=== PATIENT | female | born 1970 | race Caucasian/White ===

== ENCOUNTER 2017-02-09 12:53 | Emergency (ER) | payer SELFPAY ==
[~2017-02-09] VITALS: Ht 162.6 cm; Wt 68.4 kg
[2017-02-09 12:56] VITALS: BP 132/61; PULSE 99; RESP 16; TEMP 100.3; O2SAT 92
[2017-02-09 13:03] VITALS: BP 113/67; PULSE 90; RESP 24; O2SAT 95
[2017-02-09] MEDS ORDERED: predniSONE 20 MG TAB PO ONE (13:30)
[2017-02-09] MEDS: RESP: ALBUTEROL 2.5 MG/IPRATROPIUM 0.5 MG NEB (SCH) INH ×2 (13:36→13:37)
--- NOTE | 2017-02-09 13:37 | PD ---
HPI Chief Complaint: Respiratory Symptoms Time Seen by Provider: 13:12 Travel History International Travel<30 days: No Contact w/Intl Traveler<30days: No Traveled to known affect area: No History of Present Illness HPI The patient is a 46-year-old female who presents emergency department for 3-4 days of cough, shortness of breath, and body aches. The patient's symptoms started several days ago, she notes a dry and nonproductive cough. She also complains of chest tightness which shortness of breath and audible wheezing. The patient does state she has a history of tobacco use, one half a pack of cigarettes per day, with previous diagnosis of COPD. The patient also complains of body aches with subjective fevers and chills at home. She does complain of mild nausea but denies any vomiting, diarrhea, or abdominal pain. She denies any rash with her myalgias and arthralgias. 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 Symptoms are moderate without any alleviating or exacerbating factors. The patient states she has not smoked a cigarette last 4 days secondary to her current symptoms. PFSH Past Medical History COPD: Yes Diminished Hearing: No Respiratory: Yes (COPD) Tetanus Vaccination: Unknown Influenza Vaccination: No ?: Not LMP: 3 weeks Past Surgical History Surgical History: No Previous Surgery Social History Alcohol Use: No Tobacco Use: Yes (1/2 ppd) Substance Use: No Allergies-Medications (Allergen,Severity, Reaction): Coded Allergies: No Known Allergies (Verified Allergy, Unknown, 02/09/17) Reported Meds & Prescriptions Reported Meds & Active Scripts Active No Active Prescriptions or Reported Medications Review of Systems Except as stated in HPI: all other systems reviewed are Neg General / Constitutional: Positive: Fever, Chills HENT: Positive: Congestion Cardiovascular: Positive: Chest Pain or Discomfort (tightness) Respiratory: Positive: Cough, Shortness of Breath, Wheezing Gastrointestinal: Positive: Nausea, No: Vomiting, Abdominal Pain Musculoskeletal: Positive: Myalgias, Arthralgias Skin: No Rash Physical Exam Narrative GENERAL: Awake, alert, very pleasant 46-year-old female who appears her stated age and is in no acute respiratory distress. SKIN: Focused skin assessment warm/dry. HEAD: Atraumatic. Normocephalic. EYES: Pupils equal and round. No scleral icterus. No injection or drainage. ENT: No nasal bleeding or discharge. Oropharynx reveals cobblestoning but no erythema or exudate. NECK: Trachea midline. No JVD. CARDIOVASCULAR: Regular rate and rhythm. No murmur appreciated. RESPIRATORY: No accessory muscle use. Slightly diminished breath sounds in the bases bilateral with prolonged expiratory phase, type breath sounds, and wheezing. GASTROINTESTINAL: Abdomen soft, non-tender, nondistended. No rebound tenderness. MUSCULOSKELETAL: No obvious deformities. No clubbing. No cyanosis. No edema. NEUROLOGICAL: Awake and alert. No obvious cranial nerve deficits. Motor grossly within normal limits. Normal speech. PSYCHIATRIC: Appropriate mood and affect; insight and judgment normal. Data Data Last Documented VS Vital Signs Date Time Temp Pulse Resp B/P (MAP) Pulse Ox O2 Delivery O2 Flow Rate FiO2 02/09/17 14:31 99 20 131/57 (81) Room Air 95 02/09/17 13:30 95 02/09/17 12:56 100.3 Orders Orders Ecg Monitoring (02/09/17 13:29) Oximetry (02/09/17 13:29) Oxygen Administration (02/09/17 13:29) Chest, Single Ap (02/09/17 13:29) Albuterol-Ipratropium Neb (Duoneb Neb) (02/09/17 13:30) Influenzae A/B Antigen (02/09/17 13:29) Prednisone (Deltasone) (02/09/17 13:30) MDM Medical Decision Making Medical Screen Exam Complete: Yes Emergency Medical Condition: Yes Medical Record Reviewed: Yes Interpretation(s) Last Impressions Chest X-Ray 02/09/17 1329 Signed Impressions: Service Date/Time: Thursday, February 09, 2017 13:38 - CONCLUSION: No acute disease. Jerry Wise MD Date/Time Source Procedure Growth Status 02/09/17 13:44 Nasal Aspirate Influenza Types A,B Antigen (ADIN) - Final NEGATIVE FOR FLU A AND B ANTIGEN.... Complete Differential Diagnosis Differential diagnosis includes bronchitis, COPD exacerbation, pneumonia, pulmonary embolism, ACS, influenza, viral syndrome. Narrative Course The patient states she is a "hard stick "secondary to history of IVDA drug abuse. After discussion with the patient was agreed that we would try oral steroids, duo nebs, with chest x-ray and influenza screen. Chest x-rays unremarkable. Influenza screen was negative. The patient was reevaluated several times, last reevaluation was at 2:30 PM. The patient's symptoms have improved. I did have discussion with the patient regarding the possibility of admission if her symptoms do not improve. She does agree to return if symptoms do not improve or progress. Patient will be placed on steroids, antibiotics, nebulizers, inhaler, and provided a cough medication. She will be provided a copy of her x-ray results and flu results at discharge. Diagnosis Primary Impression: Bronchitis Patient Instructions: General Instructions Additional Instructions: Please provide the patient a copy of her flu results and chest x-ray results at discharge. Return if symptoms worsen or progress. Decrease tobacco use. Medications as directed. Med/Other Pt SpecificInfo: Prescription(s) given Scripts Albuterol Neb (Albuterol Neb) 2.5 Mg/3 Ml Neb 2.5 MG NEB Q4HR NEB Y for SHORTNESS OF BREATH, #60 NEBULE 0 Refills Prov: Miguelangel Schmidt MD 02/09/17 Albuterol 18 GM Inh (Ventolin Hfa 18 GM Inh) 90 Mcg/Act Aer 2 PUFF INH Q4H Y for SHORTNESS OF BREATH, #1 INHALER 0 Refills Prov: Miguelangel Schmidt MD 02/09/17 Promethazine-Codeine Liq (Promethazine-Codeine Liq) 6.25-10 Mg/5 Ml Syrp 5 ML PO Q6H Y for COUGH AND/OR COLD SYMPTOMS, #120 ML 0 Refills Prov: Miguelangel Schmidt MD 02/09/17 Azithromycin (Zithromax Z-Casa) 250 Mg Dspk 250 MG PO DIRECTED for Infection, #1 DSPK 0 Refills 500 MG (2 tabs) day 1, then 1 tab days 2-5. Prov: Miguelangel Schmidt MD 02/09/17 Prednisone (Prednisone) 20 Mg Tab 40 MG PO DAILY for 5 Days, #10 TAB 0 Refills Prov: Miguelangel Schmidt MD 02/09/17 Disposition: 01 DISCHARGE HOME Condition: Stable Miguelangel Schmidt MD Feb 09, 2017 13:37
--- NOTE | 2017-02-09 13:46 | RADRPT ---
EXAM DATE/TIME: 02/09/2017 13:38 [facility] COMPARISON: No previous studies available for comparison. INDICATIONS : Short of breath, cough, chest pains MEDICAL HISTORY : Chronic obstructive pulmonary disease. SURGICAL HISTORY : None. ENCOUNTER: Initial ACUITY: 3 days PAIN SCORE: 9/10 LOCATION: Bilateral chest FINDINGS: A single view of the chest demonstrates the lungs to be symmetrically aerated without evidence of mas s, infiltrate or effusion. The cardiomediastinal contours are unremarkable. Osseous structures are intact. CONCLUSION: No acute disease. Jerry Wise MD on February 09, 2017 at 13:43 Board Certified Radiologist. This report was verified electronically.
[2017-02-09 14:31] VITALS: BP 131/57; PULSE 99; RESP 20
[2017-02-09] MEDS ORDERED: ALBU0.08 NEB (14:38)
[2017-02-09] MEDS ORDERED: ZITHTAB PO (14:38)
[2017-02-09] MEDS ORDERED: PROM6.256 PO (14:38)
[2017-02-09] MEDS ORDERED: PRED20 PO (14:38)
[2017-02-09] MEDS ORDERED: VENTAER INH (14:38)
== END 2017-02-09 14:50 | disposition home or self-care (01) ==
LOC: PHED 12:53
DX: J40 Bronchitis, not specified as acute or chronic (principal); J44.9 Chronic obstructive pulmonary disease, unspecified; F17.210 Nicotine dependence, cigarettes, uncomplicated
CPT/HCPCS: 71010; 87804; 94640; 94664; 99285; J7512